=== PATIENT | male | born 1985 | race African-American/Black ===

== ENCOUNTER 2016-11-14 17:21 | Emergency (ER) | payer OTHER ==
[~2016-11-14] VITALS: Ht 177.8 cm; Wt 78.5 kg
--- NOTE | 2016-11-14 19:31 | ED GI/GU/ABDOMINAL COMPLAINT ---
History of Present Illness General Chief Complaint: Abdominal Pain/Flank Pain Stated Complaint: ABD PAIN Source: patient Exam Limitations: no limitations Vital Signs & Intake/Output Vital Signs & Intake/Output Vital Signs Date Time Temp Pulse Resp B/P Pulse O2 O2 Flow FiO2 Ox Delivery Rate 11/14 1745 98.0 70 20 128/66 97 Room Air Allergies Coded Allergies: shellfish derived (PURPLE DOTS ON LIPS 11/14/16) Reconcile Medications Dicyclomine Hydrochloride (Bentyl) 10 MG CAPSULE 1 CAP PO TID PRN HYPERACTIVE BOWEL Magnesium Citrate (Citrate Of Magnesia) 300 ML SOLUTION 296 ML PO ONCE PRN CONSTIPATION Triage Note: TRIAGE: PT TO ER C/C L SIDED ABD PAIN X COUPLE WEEKS. WAS INTERMITTENT BUT NOW IS CONSTANT SINCE NEW YEARS. CURRENTLY RATES 06/14. -N/V, REPORTS A LITTLE BIT OF DIARRHEA. LBM YESTERDAY WAS "A LITTLE BIT NORMAL". DENIES URINARY S/S. Triage Nurses Notes Reviewed? yes Onset: Gradual Duration: constant Timing: recent history Severity Numbers: 3 Location: generalized abdomen Radiation: no radiation Activities at Onset: none HPI: Patient is a 31-year-old male with an unremarkable past medical history presents to emergency room with a 3 week history of abdominal distention and hyperactive bowel sounds and decreased bowel movements. Patient states that eating does not change symptoms. Patient has bloating abdominal discomfort that has progressively worsened Patient has tried [id number] stool softeners with minimal bowel movement production. Last bowel movement was yesterday with minimal stool production no blood and no black noted. Patient denies any significant NSAID use or alcohol use. Denies any fever chills back pain. Patient does state that he does have poor dietary habits Past History Travel History Traveled to [place] past 21 day No Medical History Any Pertinent Medical History? see below for history Neurological: migraine EENT: NONE Cardiovascular: NONE Respiratory: NONE Gastrointestinal: NONE Hepatic: NONE Renal: NONE Musculoskeletal: NONE Psychiatric: NONE Endocrine: NONE Blood Disorders: NONE Cancer(s): NONE PRODUCTION FOREMAN/Reproductive: NONE Surgical History Surgical History: none Psychosocial History What is your primary language Croatian Tobacco Use: Current Not Daily ETOH Use: occasional use Illicit Drug Use: marijuana Family History Hx Contributory? No Review of Systems Review of Systems Constitutional: Reports: no symptoms. EENTM: Reports: no symptoms. Respiratory: Reports: no symptoms. Cardiovascular: Reports: no symptoms. GI: Reports: see HPI, bloating, distention. Genitourinary: Reports: no symptoms. Musculoskeletal: Reports: no symptoms. Skin: Reports: no symptoms. Neurological/Psychological: Reports: no symptoms. Hematologic/Endocrine: Reports: no symptoms. Immunologic/Allergic: Reports: no symptoms. All Other Systems: Reviewed and Negative Physical Exam Physical Exam General Appearance: no apparent distress, alert, awake Gastrointestinal: normal bowel sounds, soft, non-tender, no organomegaly Comments: Well-developed well-nourished person in no acute distress HEENT: Normal EENT exam, External auditory canal and Tympanic membranes clear. Pharynx normal. No swelling or edema. Neck: Supple, no lymphadenopathy, normal range of motion without pain or tenderness Back: Nontender, no CVA tenderness. Cardiovascular: Regular rate and rhythms no murmurs, normal JVP Respiratory: Chest nontender. No respiratory distress. Breath sounds clear to auscultation bilaterally Abdomen: Soft, nontender nondistended, no appreciable organomegaly. Normal bowel sounds. No ascites Extremity: No edema, no calf tenderness to palpation, normal and equal pulses. Neuro: Alert oriented x3, motor sensory normal, Skin: No appreciable rash on exposed skin, skin is warm and dry. Psych: Mood and affect is normal, memory and judgment is normal. Core Measures ACS in differential dx? No Severe Sepsis Present: No Septic Shock Present: No Progress Differential Diagnosis: AAA, AMI, appendicitis, biliary colic, bowel obstruction , colon cancer, cholecystitis, diverticulitis, epididymitis, esophageal varices, gastritis, hepatitis, hernia, hemorrhoids, ischemic bowel, inflamm bowel dis, Pauline-Selene tear, orchitis, pancreatitis, prostatitis, peptic ulcer, PUD/GERD, perforated viscous, pyelonephritis, SBO, STD, testicular torsion, ureterolithiasis, urinary retention, urethritis, UTI/pyelo Plan of Care: Orders Procedure Date/time Status LIPASE 11/14 1942 Complete COMPREHENSIVE METABOLIC PANEL 11/14 1942 Complete CBC WITHOUT DIFFERENTIAL 11/14 1942 Complete AMYLASE 11/14 1942 Complete Laboratory Tests 11/14/16 2015: Anion Gap 13, Estimated GFR > 60, BUN/Creatinine Ratio 12.0, Glucose 102 H, Calcium 9.7, Total Bilirubin 0.8, AST 31, ALT 42, Alkaline Phosphatase 77, Total Protein 7.6, Albumin 4.7, Globulin 2.9, Albumin/Globulin Ratio 1.6, Amylase 54, Lipase 47, CBC w Diff NO MAN DIFF REQ, RBC 4.86, MCV 88.8, MCH 30.1, RDW 13.0, MPV 8.1, Gran % 45.7, Lymphocytes % 42.5, Monocytes % 7.8, Eosinophils % 3.5, Basophils % 0.5, Absolute Granulocytes 2.9, Absolute Lymphocytes 2.7, Absolute Monocytes 0.5, Absolute Eosinophils 0.2, Absolute Basophils 0, PUBS MCHC 33.9 Patient currently is in no apparent distress and is resting comfortably on the gurney. Patient has nontender abdomen blood work was unremarkable. Abdominal x -ray will show no concerns of SBO. Patient will be treated for concerns of mild constipation and irritable bowel syndrome and was highly advised to follow up with gastrology if symptoms continue but in the week. Patient able tolerate by mouth and discharge No concerns at this time of appendicitis no right lower quadrant pain (RAFAEL GONZALES,JOCY) Diagnostic Imaging: Viewed by Me: Radiology Read. Radiology Impression: no acute abnormality Initial ED EKG: none Comments: PATIENT: SUZANNE AVALOS PRESENT AGE: 31 PATIENT ACCOUNT NO: [id number] : 84 LOCATION: [facility] ORDERING PHYSICIAN: JOCY GONZALES SERVICE DATE: 11/14/16 EXAM TYPE: RAD - [id number] VIEW EXAMINATION: XR ABDOMEN CLINICAL INDICATION: 31-year-old male with constipation. Consider obstruction. COMPARISON: None. TECHNIQUE: AP supine view of the abdomen. FINDINGS: The bowel gas pattern is normal with no evidence of ileus or obstruction. No unusual soft tissue calcifications are noted. A minimal increased burden of formed stool is seen throughout a nondilated colon. Soft tissues are normal. IMPRESSION: Unremarkable examination. Departure Departure Disposition: HOME OR SELF CARE Condition: Stable Clinical Impression Primary Impression: Constipation Referrals: MICHOACANO BURNETT,KAY SHIN MD,LINDA ERAZO (PCP/Family) Additional Instructions: As discussed BEGIN drinking plenty of water for hydration. BEGIN eating plenty of fiber. Begin [id number]-[id number] stool softener such as DOCULSATE for constipation. Begin the prescription of magnesium citrate if needed for improvement of bowel promotion. Begin the prescription of Bentyl for your abdominal complaints. If no better on Sunday follow-up with trick rodeo rider Dr. RÍOS. If symptoms worsen return to the emergency room. prescriptions are waiting At [facility] pharmacy Departure Forms: Customer Survey General Discharge Information Prescriptions: Current Visit Scripts Magnesium Citrate (Citrate Of Magnesia) 296 ML PO ONCE PRN CONSTIPATION #296 ML Ref 1 Dicyclomine Hydrochloride (Bentyl) 1 CAP PO TID PRN HYPERACTIVE BOWEL #9 CAP
[2016-11-14 20:30] LABS: ABSOLUTE BASOPHIL COUNT 0 /CUMM (0.0-0.2); ABSOLUTE EOSINOPHIL COUNT 0.2 /CUMM (0.0-0.7); ABSOLUTE GRANULOCYTE CT 2.9 /CUMM (1.4-6.5); ABSOLUTE LYMPH COUNT 2.7 /CUMM (1.2-3.4); ABSOLUTE MONOCYTE COUNT 0.5 /CUMM (0.10-0.60); BASOPHIL % 0.5 % (0.0-2.0); EOSINOPHIL % 3.5 % (0-5); GRANULOCYTE % 45.7 % (42.2-75.2); HEMATOCRIT 43.2 % (42-52); MEAN CORPUSCULAR HGB 30.1 PG (27.0-31.0); MEAN CORPUSCULAR HGB CONC 33.9 G/DL (33.0-37.0); MEAN CORPUSCULAR VOLUME 88.8 FL (80.0-94.0); MEAN PLATELET VOLUME 8.1 FL (7.4-10.4); PLATELET COUNT 248 /CUMM (130-400); RED BLOOD CELL CT 4.86 /CUMM (4.70-6.10); WHITE BLOOD CELL COUNT 6.4 /CUMM (4.8-10.8)
--- NOTE | 2016-11-14 20:40 | RADIOLOGY REPORT ---
EXAMINATION: XR ABDOMEN CLINICAL INDICATION: 31-year-old male with constipation. Consider obstruction. COMPARISON: None. TECHNIQUE: AP supine view of the abdomen. FINDINGS: The bowel gas pattern is normal with no evidence of ileus or obstruction. No unusual soft tissue calcifications are noted. A minimal increased burden of formed stool is seen throughout a nondilated colon. Soft tissues are normal. IMPRESSION: Unremarkable examination.
[2016-11-14] MEDS ORDERED: CITRATE OF MAG300 ML PO (20:51)
[2016-11-14] MEDS ORDERED: BENTYL10 M1 PO (20:51)
== END 2016-11-14 21:44 ==
LOC: ERH 17:21 → EDBD 17:21 → ERH 17:55
PROVIDERS: Physician Assistant
DX: K59.00 Constipation, unspecified (principal)
CPT/HCPCS: 74000